=== PATIENT | male | born 1950 | race Caucasian/White ===

== ENCOUNTER 2017-10-21 12:11 | Inpatient (IN) | payer MEDICARE ==
[~2017-10-21] VITALS: Ht 182.9 cm; Wt 124.7 kg
[~2017-10-21 12:11] MED LIST: CARDIZEM; CARDIZEM CD240 MG PO; CIPROFLOXACIN500 M1 PO; DIFLUCAN200 MG PO; ELIQUIS5 MG PO; IBUPROFEN 200200 M1 PO
[2017-10-21 12:25] VITALS: BP 157/94
[2017-10-21] MEDS ORDERED: METFORMIN HCL500 MG PO (12:31)
[2017-10-21 12:44] LABS: HEMATOCRIT 46.1 % (42.0-52.0); HEMOGLOBIN 15.3 gm/dL (14.0-18.0); MCH 30.6 pg (26.0-34.0); MCHC 33.1 g/dL (28.0-37.0); MCV 92.2 fL (80.0-100.0); MPV 9.9 fl. (7.2-11.1); NUCLEATED RBCS 0 /100WBC; PLATELET COUNT* 200 thou/uL (150-400); RDW-CV 13.3 % (10.5-14.5)
[2017-10-21 12:52] LABS: CALCIUM 8.9 mg/dL (8.5-10.1); CREATININE 1.4 mg/dL (0.6-1.3); POTASSIUM 3.3 mmol/L (3.5-5.1)
[2017-10-21 12:53] LABS: PROTIME 10.1 Seconds (9.20-11.50)
[2017-10-21 13:00] LABS: ABSOLUTE LYMPHOCYTES 0.7 thou/uL (0.8-5.3); ABSOLUTE MONOCYTES 0.5 thou/uL (0.0-1.2); ABSOLUTE NEUTROPHILS 10.8 thou/uL (1.6-8.1); ANISOCYTOSIS 1+; PLATELET ESTIMATE ADEQUATE; POIKILOCYTOSIS 1+
[2017-10-21 13:05] LABS: TOTAL BILIRUBIN 0.6 mg/dL (<0.1-1.0); TOTAL PROTEIN 7.8 g/dL (6.4-8.2)
[2017-10-21 16:16] LABS: URINE BILIRUBIN NEGATIVE (Negative); URINE BLOOD NEGATIVE (Negative); URINE CLARITY CLEAR; URINE COLOR YELLOW; URINE GLUCOSE-RANDOM NEGATIVE (Negative); URINE KETONES NEGATIVE (Negative); URINE LEUKOCYTES-REFLEX NEGATIVE (Negative); URINE NITRITE-REFLEX NEGATIVE (Negative); URINE PROTEIN NEGATIVE (Negative); URINE UROBILINOGEN 0.2 E.U./dl (0.2-1.0)
--- NOTE | 2017-10-21 16:45 | EKG ---
[place] [address] ELECTROCARDIOGRAM REPORT Name: HUEBR BARNETT Room: [place] [address] ADM IN .R.#: [id number] Admission: 10/21/17 Attend Phys: Ric Brown MD Discharge: Date of : 50 Report #: [id number] THIS REPORT FOR: //name// [facility] ED Test Date: 2017-10-21 Test Time: 12:56:00 Pat Name: HUBER BARNETT Department: Room: [place] [address] Gender: M [employer]: NICHOL : 1950 Requested By: Calderon Justice Order Number: [id number] Digna MD: Nick Harrison Measurements Intervals [place] Rate: 83 P: 47 [place]: 157 QRS: -12 QRSD: 116 T: -2 QT: 419 QTc: 493 Interpretive Statements Sinus rhythm Atrial premature complex Incomplete right bundle branch block Compared to ECG 07/30/2016 06:53:19 Atrial premature complex(es) now present Sinus tachycardia no longer present Electronically Signed On 10-21-2017 16:44:31 PURCHASING ASSISTANT by Nick Harrison [email or web address] <ELECTRONICALLY SIGNED> By: Nick Harrison MD, FACC 10/21/17 1644 1256 [id number] Nick Harrison MD, [facility] /EPI
[2017-10-21 17:59] VITALS: BP 135/78
[2017-10-21 18:00] VITALS: BP 132/85
[2017-10-21 20:05] LABS: BE 2.8 mmol/L (-2 to +3); HCO3 29.5 mmol/L (22.0-26.0); PO2 75.1 mmHg (75.0-100.0); pH 7.363 (7.340-7.450)
[2017-10-21 20:10] VITALS: BP 140/88
[2017-10-21 20:11] LABS: PCO2 53.1 mmHg (35.0-45.0)
[2017-10-22] VITALS: BP 88/82
[2017-10-22 03:08] LABS: GLYCOHEMOGLOBIN (HGB A1C) 6.3 % (4.8-5.6)
[2017-10-22 04:00] VITALS: BP 127/76
[2017-10-22 05:25] LABS: HEMATOCRIT 40.4 % (42.0-52.0); HEMOGLOBIN 13.4 gm/dL (14.0-18.0); MCH 30.3 pg (26.0-34.0); MCHC 33.2 g/dL (28.0-37.0); MCV 91.3 fL (80.0-100.0); RBC 4.42 mil/uL (4.50-6.00); RDW-CV 13.6 % (10.5-14.5); WBC 12.6 thou/uL (4.0-11.0)
[2017-10-22 05:32] LABS: CALCIUM 8.7 mg/dL (8.5-10.1); CREATININE 1.4 mg/dL (0.6-1.3); POTASSIUM 3.7 mmol/L (3.5-5.1)
[2017-10-22 08:00] VITALS: BP 127/76
[2017-10-22 16:00] VITALS: BP 118/61
[2017-10-22 20:00] VITALS: BP 108/67
[2017-10-23 03:30] VITALS: BP 111/66
[2017-10-23 03:37] VITALS: BP 121/64
[2017-10-23 05:46] LABS: ABSOLUTE EOSINOPHILS 0.1 thou/uL (0.0-0.7); ABSOLUTE LYMPHOCYTES 0.8 thou/uL (0.8-5.3); BASOPHILS 0.1 %; EOSINOPHILS 0.4 %; HEMATOCRIT 38.1 % (42.0-52.0); HEMOGLOBIN 12.7 gm/dL (14.0-18.0); LYMPHOCYTES 5.7 %; MCH 30.5 pg (26.0-34.0); MCHC 33.3 g/dL (28.0-37.0); MCV 91.6 fL (80.0-100.0); MONOCYTES 7.3 %; MPV 10.2 fl. (7.2-11.1); NUCLEATED RBCS 0 /100WBC; PLATELET COUNT* 176 thou/uL (150-400); POLYS 86.5 %; RBC 4.16 mil/uL (4.50-6.00); RDW-CV 13.2 % (10.5-14.5); WBC 13.9 thou/uL (4.0-11.0)
[2017-10-23 08:00] VITALS: BP 109/60
[2017-10-23 12:00] VITALS: BP 102/54
[2017-10-23 18:15] VITALS: BP 115/70
[2017-10-23 20:00] VITALS: BP 123/64
[2017-10-24] VITALS: BP 117/48
[2017-10-24 04:00] VITALS: BP 142/61
[2017-10-24 08:15] VITALS: BP 121/69
[2017-10-24 12:18] VITALS: BP 116/74
[2017-10-24 20:13] VITALS: BP 146/80
[2017-10-25] VITALS: BP 114/71
[2017-10-25 04:37] VITALS: BP 115/73
[2017-10-25 05:17] LABS: HEMATOCRIT 37.5 % (42.0-52.0); HEMOGLOBIN 12.6 gm/dL (14.0-18.0); MCH 30.9 pg (26.0-34.0); MCHC 33.5 g/dL (28.0-37.0); MCV 92.2 fL (80.0-100.0); MPV 9.8 fl. (7.2-11.1); RBC 4.07 mil/uL (4.50-6.00); RDW-CV 13.5 % (10.5-14.5); WBC 9.6 thou/uL (4.0-11.0)
[2017-10-25 05:41] LABS: ALBUMIN 3.1 g/dL (3.4-5.0); CALCIUM 8.6 mg/dL (8.5-10.1); CREATININE 1.1 mg/dL (0.6-1.3); MAGNESIUM 2.6 mg/dL (1.8-2.4); POTASSIUM 3.9 mmol/L (3.5-5.1); TOTAL BILIRUBIN 0.6 mg/dL (<0.1-1.0)
[2017-10-25 08:00] VITALS: BP 142/87
[2017-10-25 13:00] VITALS: BP 123/67
[2017-10-25 16:00] VITALS: BP 119/71
[2017-10-25 20:03] VITALS: BP 130/64
[2017-10-26] VITALS: BP 160/81
[2017-10-26 04:00] VITALS: BP 137/69
[2017-10-26 08:00] VITALS: BP 162/65
[2017-10-26 12:00] VITALS: BP 122/65
--- NOTE | 2017-10-26 15:24 | CON ---
[address] [address] CONSULTATION Name: HUBER BARNETT Room: [address] IN M.R.#: [id number] Admission: 10/21/17 Attend Phys: Ric Brown MD Discharge: Date of : 50 Report #: [id number] THIS REPORT FOR: //name// CC: Harish Brown TYPE OF REPORT: Infectious disease consultation. REASON FOR CONSULTATION: I was asked to evaluate the patient concerning bilateral pneumonia. HISTORY OF PRESENT ILLNESS: The patient was a 67-year old with a history of hypertension, diabetes, pulmonary emboli. Known neck mass with deviated trachea. He has had a cough for the last month, presents with acute change this past week with low grade fever, increasing cough and shortness of breath. He presents to the Emergency Room, although he is afebrile. He had basilar infiltrates evident. Placed on azithromycin and ceftriaxone. Overall, feels better today. CT scan also showed evidence of a thyroid mass impinging upon the trachea. This, however, was not biopsied today and was planned to be done as an outpatient. Also noted during his coughing spell several days ago, a pop to his right lower chest region. Now, has ecchymosis that extends across his abdomen and his back on the right side. Still has some discomfort in this region. REVIEW OF SYSTEMS: He has had no nausea, vomiting, diarrhea, dysuria or frequency. The patient has had no travel outside the [place]. He has had previous pneumonia. He states four times as an adult. His immunizations are up-to-date for pneumonia but has not had influenza vaccination. He has pet cat and some farm animals. He does not tend to farm animals. He has underlying rheumatoid arthritis and takes methotrexate. ALLERGIES: None. MEDICATIONS: As noted on his MAR including azithromycin and ceftriaxone. PAST MEDICAL HISTORY: Hypertension, nephrolithiasis, gout, diabetes, pulmonary emboli, DVT, neck mass. FAMILY HISTORY: Noncontributory. SOCIAL HISTORY: He is a past smoker. No significant alcohol intake. PHYSICAL EXAMINATION: VITAL SIGNS: Afebrile and hemodynamically stable. Oxygen per nasal cannula. GENERAL: He is sitting up in his chair, in no acute distress. Alert and cooperative. He was able to stand without assistance. [place] [address] CONSULTATION Name: HUBER BARNETT Kathy Room: [address] IN [facility]#: [id number] Admission: 10/21/17 Attend Phys: Ric Brown MD Discharge: Date of : 50 Report #: [id number] Ecchymosis across his lower abdomen and into his right flank and buttock region. Moderate tenderness over this region. HEENT: Unremarkable. NECK: Full with palpable mass. LUNGS: Crackles heard in the bases bilaterally. No wheezes. HEART: Regular, without murmur. ABDOMEN: Otherwise, obese and nontender. No hepatosplenomegaly or mass. LABORATORY STUDIES: Sodium 140, potassium 3.9, bicarbonate 34 and creatinine 1.1. Liver function test normal. Hemoglobin 12.6; WBC 9.6 and platelet count 202,000. Urine antigen is negative for legionella and Strep pneumo. RADIOLOGICAL DATA: CT scan of the chest showed basilar infiltrates. CT scan of the neck showed enlargement of the left thyroid, which extends down into the upper left mediastinum. CT of the abdomen showed abdominal wall contusion. Ultrasound of the abdomen showed hepatomegaly, cholelithiasis, left kidney stone and right kidney cyst. IMPRESSION AND PLAN: A 67-year old with previous history of pulmonary emboli, who was anticoagulated, developed lower respiratory tract infection, community acquired pneumonia and a hematoma with contusion to the left abdomen and posterior soft tissues. Also, has a left thyroid mass, which extends down into the mediastinum. No organisms identified. We would recommend continuing his antibiotic coverage with azithromycin and Omnicef at the time of discharge. We will complete a 10-day course of treatment. Follow up chest x-ray following completion of his therapy. Workup of his thyroid to be performed as an outpatient. <ELECTRONICALLY SIGNED> By: Prem Noguera MD 10/26/17 1524 1753 [id number] Noguera MD /nt
[2017-10-26 16:00] VITALS: BP 133/73
[2017-10-26 20:52] VITALS: BP 129/64
[2017-10-27] VITALS: BP 135/78
[2017-10-27 04:00] VITALS: BP 144/89
[2017-10-27 05:12] LABS: HEMATOCRIT 38.3 % (42.0-52.0); HEMOGLOBIN 12.8 gm/dL (14.0-18.0); MCHC 33.3 g/dL (28.0-37.0); MCV 92.9 fL (80.0-100.0); MPV 9.7 fl. (7.2-11.1); RBC 4.13 mil/uL (4.50-6.00); WBC 8.6 thou/uL (4.0-11.0)
[2017-10-27 05:45] LABS: ALBUMIN 3.1 g/dL (3.4-5.0); CREATININE 1.1 mg/dL (0.6-1.3); MAGNESIUM 2.1 mg/dL (1.8-2.4); TOTAL BILIRUBIN 0.6 mg/dL (<0.1-1.0); TOTAL PROTEIN 6.4 g/dL (6.4-8.2)
[2017-10-27 08:00] VITALS: BP 143/81
[2017-10-27 12:22] VITALS: BP 116/71
[2017-10-27 20:00] VITALS: BP 136/81
[2017-10-28 00:30] VITALS: BP 142/83
[2017-10-28 04:27] LABS: ALBUMIN 2.8 g/dL (3.4-5.0); CALCIUM 8.6 mg/dL (8.5-10.1); POTASSIUM 3.9 mmol/L (3.5-5.1); TOTAL BILIRUBIN 0.6 mg/dL (<0.1-1.0); TOTAL PROTEIN 5.8 g/dL (6.4-8.2)
[2017-10-28 04:29] LABS: ABSOLUTE EOSINOPHILS 0.7 thou/uL (0.0-0.7); ABSOLUTE LYMPHOCYTES 1.1 thou/uL (0.8-5.3); ABSOLUTE MONOCYTES 0.9 thou/uL (0.0-1.2); ABSOLUTE NEUTROPHILS 5.6 thou/uL (1.6-8.1); BASOPHILS 0.5 %; EOSINOPHILS 8.5 %; HEMATOCRIT 38.1 % (42.0-52.0); HEMOGLOBIN 12.8 gm/dL (14.0-18.0); MCH 31.1 pg (26.0-34.0); MCHC 33.6 g/dL (28.0-37.0); MCV 92.3 fL (80.0-100.0); MONOCYTES 11.2 %; MPV 9.6 fl. (7.2-11.1); NUCLEATED RBCS 0 /100WBC; PLATELET COUNT* 219 thou/uL (150-400); POLYS 66.8 %; RBC 4.13 mil/uL (4.50-6.00); RDW-CV 13.2 % (10.5-14.5); WBC 8.4 thou/uL (4.0-11.0)
[2017-10-28 08:30] VITALS: BP 181/90
[2017-10-28] MEDS ORDERED: HYDROCODONE-AP1 EAC6 PO (11:19)
[2017-10-28] MEDS ORDERED: LASIX 40 MG TAB40 M2 PO (11:20)
[2017-10-28] MEDS ORDERED: KLOR-CON 1010 MEQ PO (11:21)
[2017-10-28] MEDS ORDERED: CEFUROXIME500 MG PO (11:22)
[2017-10-28 11:25] VITALS: BP 181/90
[2017-10-28 12:32] VITALS: BP 181/90
[2017-10-28] MEDS ORDERED: FLEXERIL PO (12:49)
[2017-10-28 15:51] VITALS: BP 181/90
== END 2017-10-28 15:30 | disposition home or self-care (01) | DRG 871 ==
LOC: M.ERS 12:11 → M.TBA-ER 14:41 → M.2W 14:41 → M.TBA-ER 15:00 → M.2W 17:47 → M.ORTHSURG 10-27 14:30
PROVIDERS: Family Medicine; Internal Medicine; Physician Assistant; ADMIT Internal Medicine
PROC: 5A09357 Assistance with Respiratory Ventilation, Less than 24 Consecutive Hours, Continuous Positive Airway Pressure (ICD-10-PCS; principal; 2017-10-23)
DX: A41.9 Sepsis, unspecified organism (principal); J18.9 Pneumonia, unspecified organism; J96.21 Acute and chronic respiratory failure with hypoxia; S30.1XXA Contusion of abdominal wall, initial encounter; K75.81 Nonalcoholic steatohepatitis (NASH); I12.9 Hypertensive chronic kidney disease with stage 1 through stage 4 chronic kidney disease, or unspecified chronic kidney disease; E11.22 Type 2 diabetes mellitus with diabetic chronic kidney disease; N18.2 Chronic kidney disease, stage 2 (mild); M10.9 Gout, unspecified; E66.9 Obesity, unspecified; E87.6 Hypokalemia; X58.XXXA Exposure to other specified factors, initial encounter; Y93.89 Activity, other specified; Y92.89 Other specified places as the place of occurrence of the external cause; Y99.8 Other external cause status; Z86.711 Personal history of pulmonary embolism; Z79.01 Long term (current) use of anticoagulants; Z68.37 Body mass index [BMI] 37.0-37.9, adult; Z87.442 Personal history of urinary calculi; Z86.718 Personal history of other venous thrombosis and embolism

== ENCOUNTER → 2017-11-06 | Outpatient (CLI) | payer MEDICARE ==
[~2017-11-06] MED LIST changes: +CEFUROXIME500 MG PO; +FLEXERIL PO; +HYDROCODONE-AP1 EAC6 PO; +KLOR-CON 1010 MEQ PO; +LASIX 40 MG TAB40 M2 PO; +METFORMIN HCL500 MG PO
== END ==
LOC: M.RAD 15:20
DX: Z09 Encounter for follow-up examination after completed treatment for conditions other than malignant neoplasm (principal); J18.9 Pneumonia, unspecified organism; R91.8 Other nonspecific abnormal finding of lung field; E78.5 Hyperlipidemia, unspecified

== ENCOUNTER → 2017-11-13 | Outpatient (CLI) | payer MEDICARE | LOC: M.ULTRA 12:32 | DX: M79.605 Pain in left leg (principal); R07.89 Other chest pain; M54.9 Dorsalgia, unspecified; R91.8 Other nonspecific abnormal finding of lung field; M79.89 Other specified soft tissue disorders; R60.0 Localized edema; E11.9 Type 2 diabetes mellitus without complications; J18.9 Pneumonia, unspecified organism; E78.5 Hyperlipidemia, unspecified ==